=== PATIENT | male | born 1950 | race Caucasian/White ===

== ENCOUNTER 2018-05-21 04:23 | Emergency (ER) | payer OTHER ==
[~2018-05-21] VITALS: Ht 177.8 cm; Wt 77.5 kg
[2018-05-21] MEDS ORDERED: BACTRIM,SEPT1 TABLET PO (06:11)
[2018-05-21 06:45] VITALS: BP 191/92
== END 2018-05-21 06:46 | disposition home or self-care (01) ==
LOC: EME 04:23
PROC: 0H9HXZZ Drainage of Right Upper Leg Skin, External Approach (ICD-10-PCS; principal; 2018-05-21)
DX: L02.415 Cutaneous abscess of right lower limb (principal); I10 Essential (primary) hypertension; F17.200 Nicotine dependence, unspecified, uncomplicated; Z71.6 Tobacco abuse counseling; Z88.8 Allergy status to other drugs, medicaments and biological substances
CPT/HCPCS: 71046; 87070; 87075; 87077; 87186; 87205; 99281; 99284